=== PATIENT | female | born 1995 | race Asian ===

== ENCOUNTER → 2025-03-11 | Outpatient (CLI) | payer BC ==
[2025-03-11 10:02] LABS: BASOPHILS % 0.7 % (0.0-2.0); EOSINOPHILS % 3.7 % (0.0-5.0); HEMATOCRIT. 38.9 % (36.0-48.0); HEMOGLOBIN. 12.5 g/dL (12.0-16.0); LYMPHOCYTES % 32.2 % (20.0-50.0); MEAN CORPUSCULAR HEMOGLOBIN 27.6 pg (28.0-32.0); MEAN CORPUSCULAR HGB CONC 32.1 g/dL (31.0-37.0); MEAN CORPUSCULAR VOLUME 86.2 fL (81.0-99.0); MEAN PLATELET VOLUME 8.4 fl (7.4-10.4); MONOCYTES % 6.6 % (2.0-8.0); NEUTROPHILS % 56.8 % (40.0-76.0); PLATELET 273 x1000/uL (130-400); RED BLOOD CELL COUNT 4.51 mill/uL (4.2-5.4); RED CELL DISTRIBUTION WIDTH 14.4 % (11.6-14.6); WHITE BLOOD COUNT 5.8 x1000/uL (4.5-11.0)
[2025-03-11 10:13] LABS: CHLORIDE 106 mEq/L (98-107); POTASSIUM 4.5 mEq/L (3.5-5.1); SODIUM 139 mEq/L (136-145)
[2025-03-11 10:14] LABS: CALCIUM 9.7 mg/dL (8.7-10.4); CARBON DIOXIDE 28 mEq/L (21-32)
[2025-03-11 10:19] LABS: CREATININE 0.8 mg/dL (0.6-1.0); GLUCOSE 90 mg/dL (70-105); IRON 47 ug/dL (50-170); TRIGLYCERIDE 48 mg/dL (0-150)
[2025-03-11 10:20] LABS: LDL CHOLESTEROL 92 mg/dL (5-100); UREA NITROGEN BLOOD 9 mg/dL (9-23)
[2025-03-11 10:21] LABS: ALANINE AMINOTRANSFERASE 11 IU/L (10-49); ALBUMIN 4.5 g/dL (3.2-4.8); ASPARTATE AMINOTRANSFERASE 14 IU/L (<34); BILIRUBIN TOTAL 1.6 mg/dL (0.1-1.0); CHOLESTEROL 165 mg/dL (<200); HDL CHOLESTEROL 58 mg/dL (>65)
[2025-03-11 10:22] LABS: PROTEIN TOTAL 7.5 g/dL (6.0-8.3); TOTAL IRON BINDING CAPACITY 361 ug/dl (250-425)
[2025-03-11 10:23] LABS: T4 FREE 1.13 ng/dL (0.89-1.76); THYROID STIMULATING HORMONE 1.96 uIU/mL (0.55-4.78)
[2025-03-11 10:34] LABS: CLARITY URINE CLOUDY (CLEAR); COLOR URINE YELLOW (YELLOW); GLUCOSE URINE NEGATIVE (NEGATIVE); KETONES URINE TRACE (NEGATIVE); LEUKOCYTE ESTERASE URINE 1+ (NEGATIVE); NITRITE URINE NEGATIVE (NEGATIVE); OCCULT BLOOD URINE 3+ (NEGATIVE); PH URINE 5.5 (4.5-8.0); PROTEIN URINE TRACE (NEGATIVE); SPECIFIC GRAVITY URINE 1.024 (1.005-1.030)
[2025-03-11 11:09] LABS: FERRITIN 6 ng/mL (10-291)
[2025-03-11 11:12] LABS: FOLIC ACID (FOLATE) SERUM 10.68 ng/mL (>5.38)
[2025-03-11 11:13] LABS: VITAMIN B12 SERUM 464 pg/mL (211-911)
[2025-03-11 11:25] LABS: HEPATITIS B SURFACE ANTIGEN NEGATIVE (Negative)
[2025-03-11 11:40] LABS: HEPATITIS A AB IGM NEGATIVE (Negative)
[2025-03-11 11:41] LABS: HEPATITIS B CORE AB IGM NEGATIVE (Negative); HEPATITIS C AB NON REACTIVE (Neg) (Negative)
[2025-03-11 14:00] LABS: MUCUS URINE 2+ /lpf (< = 2+); RBC URINE 25-50 /hpf (0-2); SQUAMOUS EPITHELIAL CELL URINE 2+ /lpf (RARE/1+)
[2025-03-11 14:07] LABS: BACTERIA URINE 3+
== END | disposition home or self-care (01) ==
LOC: LAB 03-09 11:48
PROVIDERS: ATTEND Internal Medicine Geriatric Medicine
DX: Z00.01 Encounter for general adult medical examination with abnormal findings (principal)
CPT/HCPCS: 36415; 80053; 80061; 80074; 81001; 81003; 82306; 82607; 82728; 82746; 83036; 83540; 83550; 83655; 84439; 84443; 85025; 86592; 86705; 86709; 87340